=== PATIENT | male | born 1965 | race African-American/Black ===

== ENCOUNTER 2017-11-29 10:12 | Inpatient (IN) | payer MEDICARE, MEDICAID ==
[~2017-11-29] VITALS: Ht 188 cm; Wt 95.3 kg
[~2017-11-29 10:12] MED LIST: HIV
[2017-11-29] MEDS ORDERED: SODIUM CHLORIDE 0.9% 1000ML BAG (SEPSIS BOLUS) IV ONE (11:15)
[2017-11-29] MEDS ORDERED: IPRATROPIUM/ALBUTEROL 0.5-3(2.5)MG/3ML NEB HHN ONE (11:15)
[2017-11-29 11:42] LABS: HEMATOCRIT. 32.4 % (42.0-52.0); HEMOGLOBIN. 10.9 g/dL (14.0-18.0); MEAN CORPUSCULAR HEMOGLOBIN 28.6 pg (28.0-32.0); MEAN CORPUSCULAR VOLUME 84.7 fL (80.0-94.0); MEAN PLATELET VOLUME 8.6 fl (7.4-10.4); PLATELET 255 x1000/uL (130-400); RED BLOOD CELL COUNT 3.82 mill/uL (4.7-6.1); RED CELL DISTRIBUTION WIDTH 16.1 % (11.6-14.6)
[2017-11-29 11:45] LABS: CLARITY URINE CLEAR (CLEAR); COLOR URINE DARK YELLOW (YELLOW); KETONES URINE NEGATIVE (NEGATIVE); LEUKOCYTE ESTERASE URINE NEGATIVE (NEGATIVE); NITRITE URINE NEGATIVE (NEGATIVE); OCCULT BLOOD URINE 2+ (NEGATIVE); PH URINE 5.5 (4.5-8.0); PROTEIN URINE 2+ (NEGATIVE); SPECIFIC GRAVITY URINE 1.025 (1.005-1.030)
[2017-11-29 11:49] LABS: INR 1.1; PARTIAL THROMBOPLASTIN TIME 29.8 sec (23.4-31.0); PROTHROMBIN TIME 11.1 sec (9.4-11.6)
[2017-11-29 11:51] LABS: CHLORIDE 103 mEq/L (98-107)
[2017-11-29 12:11] LABS: PLATELET ESTIMATE NORMAL
[2017-11-29] MEDS ORDERED: AZITHROMYCIN 500 MG in DEXT 5% WATER 250 ML IV SCH (12:30)
[2017-11-29] MEDS ORDERED: CEFTRIAXONE 1 G PREMIX 50 ML IV ONE (12:30)
[2017-11-29] MEDS ORDERED: AZITHROMYCIN 500 MG in SODIUM CHLORIDE 0.9% 250 ML IV ONE (13:30)
[2017-11-29 14:58] LABS: BG BASE EXCESS -3.8 mmol/L (-2.0-2.0); BG CARBOXYHEMOGLOBIN 0.9 % (0.5-1.5); BG DEOXYHEMOGLOBIN 12.9 % (0.0-5.0); BG FRACTION INSPIRED OXYGEN 21; BG HCO3 ACT 18.6 mmol/L (22.0-26.0); BG METHEMOGLOBIN 0.3 % (0.0-1.5); BG OXYGEN SATURATION 86.9 % (92.0-98.5); BG OXYHEMOGLOBIN 85.9 % (94.0-97.0); BG PCO2 25.9 mmHg (35.0-45.0); BG PH 7.475 (7.350-7.450); BG PO2 52.4 mmHg (75.0-100.0); BG SAMPLE SITE RIGHT RADIAL; BG TOTAL HEMOGLOBIN 10.5 g/dL (12.0-18.0); BG VENT MODE ROOM AIR
[2017-11-29] MEDS ORDERED: ACETAMINOPHEN 325MG TABLET PO ONE (16:30)
[2017-11-29] MEDS ORDERED: MORPHINE SULFATE 4 MG/ML CPJ (NOT FOR IM USE) IV ONE (16:30)
[2017-11-29] MEDS ORDERED: MORPHINE SULFATE 4 MG/ML CPJ (NOT FOR IM USE) IV PRN (17:00)
[2017-11-29] MEDS ORDERED: GUAIFENESIN 200MG/10ML SUGAR FREE UDC PO PRN (17:00)
[2017-11-29] MEDS ORDERED: ACETAMINOPHEN 325MG TABLET PO PRN (17:00)
[2017-11-29] MEDS ORDERED: TRAMADOL 50MG TABLET PO PRN (17:00)
[2017-11-29] MEDS ORDERED: NITROGLYCERIN 0.4MG TABLET SL SL PRN (17:00)
[2017-11-29] MEDS ORDERED: DIPHENHYDRAMINE 50MG/ML VIAL IV PRN (17:00)
[2017-11-29] MEDS ORDERED: ONDANSETRON HCL 4MG/2ML VIAL IV PRN (17:00)
[2017-11-29] MEDS ORDERED: MAGNESIUM/ALUMINUM HYDROXIDE/SIMETHICONE 30ML UDC PO PRN (17:00)
[2017-11-29] MEDS ORDERED: LORAZEPAM 0.5MG TABLET PO PRN (17:00)
[2017-11-29] MEDS ORDERED: CLONIDINE 0.1MG TABLET PO PRN (17:00)
[2017-11-29] MEDS ORDERED: DOCUSATE SODIUM 100MG CAPSULE PO PRN (21:00)
[2017-11-29] MEDS ORDERED: NA PHOS,M-B/NA PHOS,DI-BA ENEMA 118ML PR PRN (21:00)
[2017-11-29] MEDS ORDERED: ZOLPIDEM TARTRATE 5MG TABLET PO PRN (21:00)
[2017-11-29 22:00] VITALS: BP 124/74
[2017-11-29] MEDS ORDERED: DOLU50TA PO (22:23)
[2017-11-29] MEDS ORDERED: TRIA15OI8 TP (22:23)
[2017-11-29] MEDS ORDERED: MULT-1146 PO (22:23)
[2017-11-29] MEDS ORDERED: SULF1TAB47 PO (22:23)
[2017-11-29] MEDS ORDERED: EMTR1TAB12 PO (22:23)
[2017-11-29] MEDS: GUAIFENESIN/DM 600MG/30MG ER TAB 12HR PO SCH (23:01)
[2017-11-29] MEDS: FAMOTIDINE 20MG/2ML VIAL IV SCH (23:02)
[2017-11-29] MEDS: ENOXAPARIN 40MG/0.4ML SYR SUBCUT SCH (23:02)
[2017-11-29 23:49] LABS: *AMPHETAMINES SCREEN URINE PRESUMTIVE POSITIVE (NEGATIVE); *BARBITURATES SCREEN URINE NEGATIVE (NEGATIVE); *BENZODIAZEPINES SCREEN URINE NEGATIVE (NEGATIVE); *COCAINE SCREEN URINE NEGATIVE (NEGATIVE); CANNABINOID URINE SCREEN NEGATIVE (NEGATIVE); METHADONE URINE SCREEN NEGATIVE (NEGATIVE); OPIATES URINE SCREEN PRESUMTIVE POSITIVE (NEGATIVE); PHENCYCLIDINE URINE SCREEN NEGATIVE (NEGATIVE)
[2017-11-30] VITALS: BP 102/59
[2017-11-30] MEDS: IPRATROPIUM/ALBUTEROL 0.5-3(2.5)MG/3ML NEB INH PRN ×3 (01:00→10:25)
[2017-11-30 01:04] LABS: CREATINE KINASE 268 IU/L (39-308); CREATINE KINASE MB FRACTION 2.3 ng/mL (0.5-3.6); TOTAL IRON BINDING CAPACITY 199 ug/dL (250-450)
[2017-11-30 04:00] VITALS: BP 119/67
[2017-11-30 07:41] LABS: CREATINE KINASE 299 IU/L (39-308)
[2017-11-30 08:00] VITALS: BP 123/73
[2017-11-30] MEDS: GUAIFENESIN/DM 600MG/30MG ER TAB 12HR PO SCH ×2 (10:10→20:05)
[2017-11-30] MEDS: ASPIRIN 325MG EC TABLET PO SCH (10:10)
[2017-11-30 10:45] LABS: VITAMIN B12 SERUM 918 pg/mL (211-911)
[2017-11-30 10:47] LABS: FOLIC ACID (FOLATE) SERUM > 20.00 ng/mL (>5.38)
[2017-11-30] MEDS: FAMOTIDINE 20MG/2ML VIAL IV SCH ×2 (10:57→20:05)
[2017-11-30] MEDS: CEFTRIAXONE 1 G PREMIX 50 ML IV SCH (10:58)
[2017-11-30] MEDS ORDERED: AZITHROMYCIN 500 MG in DEXT 5% WATER 250 ML IV SCH (11:00)
[2017-11-30] MEDS ORDERED: MEDICATION NOT ON FORMULARY EA (Multivitamin (Multi Vitamin Daily) 1 EACH) PO SCH (11:15)
[2017-11-30 12:00] VITALS: BP 123/73
[2017-11-30] MEDS: SULFAMETHOXAZOLE/TRIMETHOPRIM 800/160MG TABLET PO SCH (13:57)
[2017-11-30] MEDS: MULTIVITAMINS,THER W-MINERALS TABLET PO SCH (13:57)
[2017-11-30] MEDS: DOLUTEGRAVIR PO SCH (14:00)
[2017-11-30] MEDS ORDERED: IPRATROPIUM/ALBUTEROL 0.5-3(2.5)MG/3ML NEB HHN PRN (14:30)
[2017-11-30 16:00] VITALS: BP 114/76
[2017-11-30] MEDS: IPRATROPIUM/ALBUTEROL 0.5-3(2.5)MG/3ML NEB HHN SCH ×2 (16:57→22:31)
[2017-11-30] MEDS: TRIAMCINOLONE ACETONIDE 0.5% OINT 15GM TOP SCH (17:53)
[2017-11-30] MEDS ORDERED: DOLUTEGRAVIR PO SCH (18:00)
[2017-11-30] MEDS: ENOXAPARIN 40MG/0.4ML SYR SUBCUT SCH (20:06)
[2017-11-30 20:45] VITALS: BP 118/71
[2017-11-30] MEDS ORDERED: MEDICATION NOT ON FORMULARY EA (Dolutegravir Sodium (Tivicay) 50 MG) PO SCH (21:00)
[2017-12-01] VITALS: BP_SYST 116; BP_SYST 131; BP_DIAS 74; BP_DIAS 81
[2017-12-01] MEDS: IPRATROPIUM/ALBUTEROL 0.5-3(2.5)MG/3ML NEB HHN SCH ×4 (02:09→12:06)
[2017-12-01 04:45] VITALS: BP 122/82
[2017-12-01 08:00] VITALS: BP 114/75
[2017-12-01 09:06] LABS: ABSOLUTE LYMPHOCYTES 2.3 x10E3/uL (0.7-3.1); ABSOLUTE MONOCYTES 0.4 x10E3/uL (0.1-0.9); ABSOLUTE NEUTROPHILS 3.9 x10E3/uL (1.4-7.0); BASOPHILS 0 % (Not Estab.); HEMATOCRIT 31.8 % (37.5-51.0); HEMOGLOBIN 10.2 g/dL (13.0-17.7); IMMATURE GRANULOCYTES 1 % (Not Estab.); IMMATURE GRANULOCYTES ABSOLUTE 0.1 x10E3/uL (0.0-0.1); LYMPHOCYTES 34 % (Not Estab.); MEAN CORPUSCULAR HEMOGLOBIN 27.7 pg (26.6-33.0); MEAN CORPUSCULAR HGB CONC. 32.1 g/dL (31.5-35.7); MEAN CORPUSCULAR VOLUME 86 fL (79-97); MONOCYTES 6 % (Not Estab.); NEUTROPHILS 59 % (Not Estab.); PLATELETS 224 x10E3/uL (150-379); RBC 3.68 x10E6/uL (4.14-5.80); RED CELL DISTRIBUTION WIDTH 15.9 % (12.3-15.4); WBC 6.7 x10E3/uL (3.4-10.8)
[2017-12-01 12:00] VITALS: BP 119/78
[2017-12-01] MEDS: GUAIFENESIN/DM 600MG/30MG ER TAB 12HR PO SCH (12:58)
[2017-12-01] MEDS: MULTIVITAMINS,THER W-MINERALS TABLET PO SCH (12:59)
[2017-12-01] MEDS: SULFAMETHOXAZOLE/TRIMETHOPRIM 800/160MG TABLET PO SCH (12:59)
[2017-12-01] MEDS: CEFTRIAXONE 1 G PREMIX 50 ML IV SCH (13:00)
[2017-12-01] MEDS: ASPIRIN 325MG EC TABLET PO SCH (13:00)
[2017-12-01] MEDS: DOLUTEGRAVIR PO SCH (13:01)
[2017-12-01] MEDS: TRIAMCINOLONE ACETONIDE 0.5% OINT 15GM TOP SCH (13:02)
[2017-12-01] MEDS: FAMOTIDINE 20MG/2ML VIAL IV SCH (13:08)
[2017-12-01 13:12] LABS: % CD 3 POS. LYMPHOCYTES 79.6 % (57.5-86.2); % CD 4 POS. LYMPHOCYTES 14.1 % (30.8-58.5); % CD 8 POS. LYMPH 64.9 % (12.0-35.5); ABSOLUTE CD 3 1831 /uL (622-2402); ABSOLUTE CD 4 HELPER 324 /uL (359-1519); ABSOLUTE CD 8 SUPPRESSOR 1493 /uL (109-897); CD4/CD8 RATIO 0.22 (0.92-3.72)
[2017-12-01 16:00] VITALS: BP 117/77
[2017-12-01 16:07] VITALS: BP 115/85
== END 2017-12-01 16:40 | disposition home or self-care (01) | DRG 871 ==
LOC: ER 10:12 → 7WST 14:51 → EDBEDREQ 14:54 → EDBEDREQTM 14:54 → SUPCPDRO 16:45 → ENRESERV 19:58
PROVIDERS: ADMIT Internal Medicine; ATTEND Internal Medicine
DX: A41.9 Sepsis, unspecified organism (principal); J18.9 Pneumonia, unspecified organism; J96.00 Acute respiratory failure, unspecified whether with hypoxia or hypercapnia; E43 Unspecified severe protein-calorie malnutrition; E87.3 Alkalosis; D50.9 Iron deficiency anemia, unspecified; F11.10 Opioid abuse, uncomplicated; E87.1 Hypo-osmolality and hyponatremia; E83.52 Hypercalcemia; R80.9 Proteinuria, unspecified; F15.10 Other stimulant abuse, uncomplicated; D63.8 Anemia in other chronic diseases classified elsewhere; E83.51 Hypocalcemia; Z87.01 Personal history of pneumonia (recurrent); Z83.3 Family history of diabetes mellitus; Z68.27 Body mass index [BMI] 27.0-27.9, adult; Z88.8 Allergy status to other drugs, medicaments and biological substances
CPT/HCPCS: 36415; 36600; 71045; 80053; 80305; 81003; 82375; 82550; 82553; 82607; 82746; 82805; 82962; 83036; 83540; 83550; 83605; 83615; 83880; 84484; 85025; 85610; 85730; 86359; 86360; 87040; 87804; 93005; 93970; 94640; 97162; 97166; C1893; J0456; J0696; J1650; J2270; J3490; J7030; J7050; J7060; J7620